=== PATIENT | female | born 1970 | race African-American/Black ===

== ENCOUNTER → 2018-03-03 | Day surgery (SDC) | payer BC ==
[~2018-03-03] MED LIST: DEXAMETHASONE SOD PHOS 20 MG/5 ML VIAL.; GLYCOPYRROLATE 1 MG/5 ML VIAL.; IV RINGERS,LACTATED 1000ML 1,000 ML IV; KETOROLAC 30 MG/ML INJ FOR OR. INJ; LIDOCAINE 1% PF 2 ML VIAL. ID; LIDOCAINE 2% PF Vial for OR 5 ML VIAL.; MIDAZOLAM HCL/PF 2 MG/2 ML VIAL.; MORPHINE SULFATE 4 MG/ML DISP.SYRIN.; NEOSTIGMINE METHYLSULFATE 5 MG/5 ML SYRINGE.; ONDANSETRON PF 4 MG/2 ML VIAL.; ONDANSETRON PF 4 MG/2 ML VIAL. IV; PHENYLEPHRINE in 0.9% NACL PF 1 MG/10 ML SYRINGE. IV; PROCHLORPERAZINE 10 MG/2 ML VIAL.; PROPOFOL 20 ML IV; ROCURONIUM 50 MG/5 ML VIAL.; SEVOFLURANE 61 TO 120 MINUTES. IH; fentaNYL PF VIAL 100 MCG/2 ML VIAL; fentaNYL PF VIAL 100 MCG/2 ML VIAL IV
[2018-03-03 09:06] LABS: NEG OBC UR NEG; POS OBC UR POS; U PREG PATIENT NEGATIVE (NEG)
[2018-03-03] MEDS: IV RINGERS,LACTATED 1000ML 1,000 ML IV ×2 (09:11→12:00)
[2018-03-03] MEDS: BUPIVACAINE-EPI 0.25%-1:200000 50 ML VIAL. (09:59)
[2018-03-03] MEDS: fentaNYL PF VIAL 100 MCG/2 ML VIAL IV ×4 (11:30→12:28)
[2018-03-03] MEDS: MORPHINE SULFATE 4 MG/ML DISP.SYRIN. IV ×4 (11:38→12:15)
[2018-03-03] MEDS: PROCHLORPERAZINE 10 MG/2 ML VIAL. IV (11:39)
[2018-03-03] MEDS: oxyCODONE/APAP 5/325 1 TAB TABLET PO (12:49)
== END | disposition home or self-care (01) ==
LOC: SURG 08:22
DX: K43.6 Other and unspecified ventral hernia with obstruction, without gangrene (principal); Z87.01 Personal history of pneumonia (recurrent); Z80.9 Family history of malignant neoplasm, unspecified; F17.200 Nicotine dependence, unspecified, uncomplicated; E66.01 Morbid (severe) obesity due to excess calories; Z90.79 Acquired absence of other genital organ(s); D64.9 Anemia, unspecified; Z98.890 Other specified postprocedural states; Z79.899 Other long term (current) drug therapy
CPT/HCPCS: 49653; 81025; A7015; C1781; J0690; J0780; J1100; J1885; J2250; J2270; J2370; J2405; J2704; J2710; J3010; J3490; J7120

== ENCOUNTER 2018-06-11 01:20 | Emergency (ER) | payer BC ==
[~2018-06-11] VITALS: Ht 170.2 cm; Wt 128.8 kg
[~2018-06-11 01:20] MED LIST changes: -DEXAMETHASONE SOD PHOS 20 MG/5 ML VIAL.; -GLYCOPYRROLATE 1 MG/5 ML VIAL.; +IBUP-1060 PO; +IRON1TAB2 PO; -IV RINGERS,LACTATED 1000ML 1,000 ML IV; -KETOROLAC 30 MG/ML INJ FOR OR. INJ; -LIDOCAINE 1% PF 2 ML VIAL. ID; -LIDOCAINE 2% PF Vial for OR 5 ML VIAL.; -MIDAZOLAM HCL/PF 2 MG/2 ML VIAL.; -MORPHINE SULFATE 4 MG/ML DISP.SYRIN.; -NEOSTIGMINE METHYLSULFATE 5 MG/5 ML SYRINGE.; -ONDANSETRON PF 4 MG/2 ML VIAL.; -ONDANSETRON PF 4 MG/2 ML VIAL. IV; +OXYC-323 PO; -PHENYLEPHRINE in 0.9% NACL PF 1 MG/10 ML SYRINGE. IV; -PROCHLORPERAZINE 10 MG/2 ML VIAL.; -PROPOFOL 20 ML IV; -ROCURONIUM 50 MG/5 ML VIAL.; -SEVOFLURANE 61 TO 120 MINUTES. IH; -fentaNYL PF VIAL 100 MCG/2 ML VIAL; -fentaNYL PF VIAL 100 MCG/2 ML VIAL IV
[2018-06-11 02:20] VITALS: BP 185/95
--- NOTE | 2018-06-11 02:53 | PHYS DOC ---
Adult General Chief Complaint Chief Complaint: FOOT INJURY PAIN HPI HPI Patient is a 48-year-old female who presents to emergency department complaining of left foot pain. Patient states that her symptoms began approximately one week ago around the same time that she had gotten a new pair of work shoes. Patient denies any trauma. She says that she works at [employer] and is on her feet for the majority of her shift. She describes the pain as on the bottom of the foot and is rated as 4/10 in severity. Patient states that the pain spreads to the top of her foot. She states that the pain is primarily located near the 3rd to 5th toe and spreads back towards her heal. She complains of numbness at the base of her 1st and 2nd toes. Patient states that she had been taking 2 Aleve every 4-6 hours for pain which helps and she states that walking and putting pressure on her foot makes the pain worse. Review of Systems Review of Systems Constitutional: Denies fever or chills [] Eyes: Denies change in visual acuity, redness, or eye pain [] HENT: Denies nasal congestion or sore throat [] Respiratory: Denies cough or shortness of breath [] Cardiovascular: Denies chest pain and palpitations[] GI: Denies abdominal pain, nausea, vomiting, bloody stools or diarrhea [] : Denies dysuria or hematuria [] Musculoskeletal: Complains of left foot pain [] Neurologic: Denies headache, focal weakness or sensory changes [] Complete systems were reviewed and found to be within normal limits, except as documented in this note. Current Medications Current Medications Current Medications Medications (Trade) Dose Ordered Sig/[facility] Start Time Stop Time Status Last Admin Dose Admin Dexamethasone (Decadron) 10 mg 1X ONCE 06/11/18 03:00 06/11/18 03:01 Allergies Allergies Allergies Coded Allergies Type Severity Reaction Last Updated Verified No Known Drug Allergies 03/03/18 No Physical Exam Physical Exam Constitutional: Well developed, well nourished, no acute distress, non-toxic appearance. [] HENT: Normocephalic, atraumatic, bilateral external ears normal, oropharynx moist, no oral exudates, nose normal. [] Eyes: PERRL, EOMI [] Cardiovascular:Heart rate regular rhythm, no murmur [] Lungs & Thorax: Bilateral breath sounds clear to auscultation [] Skin: Warm, dry, no erythema, no rash. [] Back: No tenderness, no CVA tenderness. [] Extremities: Left foot tenderness on plantar aspect of foot. Left foot has mild restricted ROM in dorsiflexion. No cyanosis, no clubbing, no edema. Sensation intact bilaterally. [] Neurologic: Alert and oriented X 3, normal motor function, normal sensory function, no focal deficits noted. [] EKG EKG [] Radiology/Procedures Radiology/Procedures [] Course & Med Decision Making Course & Med Decision Making Pertinent Labs and Imaging studies reviewed. (See chart for details) Patient is a 48-year-old female presents to the emergency department complaining of left foot pain. Supportive measures provided. Steroid administered [] Dragon Disclaimer Dragon Disclaimer This electronic medical record was generated, in whole or in part, using a voice recognition dictation system. Departure Departure Impression: Primary Impression: Plantar fasciitis of left foot Disposition: 01 HOME, SELF-CARE Condition: STABLE Referrals: NON,STAFF (PCP) Patient Instructions: Plantar Fasciitis Scripts Prednisone (PREDNISONE) 20 Mg Tablet 2 TAB PO DAILY, #8 TAB Start on Wednesday06/12/18 Prov: EMY SHEPARD DO 06/11/18 EMY SHEPARD DO Jun 11, 2018 02:53
[2018-06-11] MEDS ORDERED: PRED20TA PO (02:59)
[2018-06-11] MEDS ORDERED: DEXAMETHASONE 4 MG TABLET PO ONE (03:00)
== END 2018-06-11 03:18 | disposition home or self-care (01) ==
LOC: ER 01:20
DX: M72.2 Plantar fascial fibromatosis (principal)
CPT/HCPCS: 99283; J8540

== ENCOUNTER 2021-08-02 18:14 | Emergency (ER) | payer BC, OTHER ==
[~2021-08-02] VITALS: Ht 167.6 cm; Wt 150.0 kg
[~2021-08-02 18:14] MED LIST changes: -OXYC-323 PO; +OXYC1TAB15 PO; +PRED20TA PO
[2021-08-02 19:10] VITALS: BP 170/78
--- NOTE | 2021-08-02 20:28 | PHYS DOC ---
Past Medical History Past Medical History: No Pertinent History Additional Past Medical Histor: obesity Past Surgical History: Hysterectomy, Other Additional Past Surgical Histo: HERNIA Smoking Status: Current Every Day Smoker Alcohol Use: None Drug Use: None General Adult EDM: Chief Complaint: ANKLE PROBLEM HPI: HPI: Patient is a 51 year old female who presents the ED today complaining of a throbbing 3 out of 10 right foot and right ankle pain with swelling, symptoms began a couple minutes prior to coming to the ED. Patient denies any injuries. Patient states the pain feels like pressure/swelling in the foot. Denies any pain radiating to the calf. Denies any numbness or tingling to the right lower extremity. States sitting down alleviates the pain. Review of Systems: Review of Systems: Constitutional: Denies fever or chills. [] Musculoskeletal: Reports right foot and right ankle pain and swelling. Denies back pain Integument: Denies rash. [] Neurologic: Denies headache, focal weakness or sensory changes. [] Psychiatric: Denies depression or anxiety. [] Heart Score: C/O Chest Pain: N/A Risk Factors: Risk Factors: DM, Current or recent (<one month) smoker, HTN, HLP, family history of CAD, obesity. Risk Scores: Score 0 - 3: 2.5% MACE over next 6 weeks - Discharge Home Score 4 - 6: 20.3% MACE over next 6 weeks - Admit for Clinical Observation Score 7 - 10: 72.7% MACE over next 6 weeks - Early Invasive Strategies Allergies: Allergies: Allergies Coded Allergies Type Severity Reaction Last Updated Verified No Known Drug Allergies 03/03/18 No Physical Exam: PE: Constitutional: Well developed, well nourished, no acute distress, non-toxic appearance. [] Skin: Warm, dry, no erythema, no rash. [] Back: No tenderness, no CVA tenderness. [] Extremities: Morbidly obese patient. Right lower extremity with no obvious deformity. Soft tissue swelling noted around the ankle and foot diffusely. No navicular bone tenderness to the foot, no tenderness on the base of the fifth metatarsal of the foot. No tenderness to the ankle. Full range of motion to the right foot, right ankle, right toes. +2 right pedal pulse. Cap refill less than 2 seconds to right toes. Negative Homans' sign to the right lower extremity Neurologic: Alert and oriented X 3, normal motor function, normal sensory function, no focal deficits noted. [] Psychologic: Affect normal, judgement normal, mood normal. [] Current Patient Data: Vital Signs: Vital Signs Date Time Temp Pulse Resp B/P (MAP) Pulse Ox O2 Delivery O2 Flow Rate FiO2 08/02/21 19:10 98.3 96 20 170/78 (108) 97 Room Air 98.3 EKG: EKG: [] Radiology/Procedures: Radiology/Procedures: []PROCEDURE: ANKLE RIGHT 3V Study: 1. XR FOOT_RIGHT 3 VIEWS 2. XR EXAM OF ANKLE_RIGHT 3VIEWS Indication: Pain. Comparison: None. Findings: Right ankle: The malleoli are intact. Symmetric ankle mortise. No discrete abnormality of the talar dome. Minimal spurring at the tip of the medial malleolus. Right foot: No acute fracture. Mild scattered degenerative changes. Os peroneum and an os trigonum. No significant joint space height loss. Impression: Right ankle and right foot: 1. No displaced fracture or traumatic malalignment. 2. Mild scattered degenerative changes. Electronically signed by: JORGE DURAN MD (08/02/2021 8:31 PM) [facility] DICTATED and SIGNED BY: JORGE DURAN MD DATE: 08/02/[id number] 0 Course & Med Decision Making: Course & Med Decision Making Pertinent Labs and Imaging studies reviewed. (See chart for details) This a 51-year-old female patient presenting to the ED today with right foot and right ankle pain and swelling that began this afternoon. No known injury. Right foot and right ankle x-rays are negative for any acute findings, noted for DJD. Harish bandage applied to the right foot and right ankle by the radiology special procedure tech, n eurovascular exam done by the RN is negative. Ice elevation encouraged. OTC pain relievers. Follow-up with Ortho in 1 week if pain persist. Dragon Disclaimer: Nguyen Disclaimer: This electronic medical record was generated, in whole or in part, using a voice recognition dictation system. Departure Departure Impression: Primary Impression: Right foot pain Additional Impressions: Swelling of right foot Right ankle pain Qualified Codes: M25.571 - Pain in right ankle and joints of right foot Right ankle swelling Degenerative joint disease of foot, right Qualified Codes: M19.071 - Primary osteoarthritis, right ankle and foot Disposition: HOME / SELF CARE / HOMELESS Condition: STABLE Referrals: BHAKTI VARGHESE JR, MD (PCP) follow up in one week SVETLANA HEALY MD Patient Instructions: Arthritis, Degenerative-Brief Additional Instructions: You were evaluated in the emergency room, your right foot and right ankle x-rays were negative for any acute findings. You have arthritis in your right foot, try to wear the Harish bandage provided as tolerated and needed. Try to ice and elevate your extremity. You can take [id number] pain relievers especially anti-inflammatories like naproxen or ibuprofen or Aleve. Follow-up with o rthopedic doctor provided in 1 week if symptoms persist SHRUTHI MUNOZ APRN Aug 02, 2021 20:28
--- NOTE | 2021-08-02 20:33 | RAD ---
Study: 1. XR FOOT_RIGHT 3 VIEWS 2. XR EXAM OF ANKLE_RIGHT 3VIEWS Indication: Pain. Comparison: None. Findings: Right ankle: The malleoli are intact. Symmetric ankle mortise. No discrete abnormality of the talar dome. Minimal spurring at the tip of the medial malleolus. Right foot: No acute fracture. Mild scattered degenerative changes. Os peroneum and an os trigonum. No significan t joint space height loss. Impression: Right ankle and right foot: 1. No displaced fracture or traumatic malalignment. 2. Mild scattered degenerative changes. Electronically signed by: JORGE DURAN MD (08/02/2021 8:31 PM) [facility]
== END 2021-08-02 21:30 | disposition home or self-care (01) ==
LOC: ER 18:14
DX: M19.071 Primary osteoarthritis, right ankle and foot (principal); F17.200 Nicotine dependence, unspecified, uncomplicated
CPT/HCPCS: 73610; 73630; 99284